=== PATIENT | male | born 1980 | race African-American/Black ===

== ENCOUNTER 2017-08-05 08:38 | Emergency (ER) | payer SELFPAY ==
[2017-08-05 10:08] VITALS: BP 122/87
--- NOTE | 2017-08-05 10:54 | UC ---
Complaint Male HPI - HPI Summary HPI Summary: Pt presents with c/o dysuria, hematuria and penile discharge X 2 days. Pt reports that he had unprotected intercourse with a former girlfriend. STD status unknown. - History of Current Complaint Chief Complaint: UCGU Stated Complaint: BLOOD IN URINE 2 DAYS Time Seen by Provider: 08/05/17 10:43 Hx Obtained From: Patient Onset/Duration: Sudden Onset, Lasting Days, Still Present Timing: Intermittent, Lasting Seconds Severity Initially: Mild Severity Currently: Mild Location: Penis Character: Sharp, Burning Aggravating Factor(s): Voiding Associated Signs And Symptoms: Positive: Hematuria, Dysuria - Allergies/Home Medications Allergies/Adverse Reactions: Allergies Allergy/AdvReac Type Severity Reaction Status Date / Time No Known Allergies Allergy Verified 08/05/17 09:54 Home Medications: Home Medications NK [No Home Medications Reported] 08/05/17 [History Confirmed 08/05/17] PMH/Surg Hx/FS Hx/Imm Hx Previously Healthy: Yes - Surgical History Surgical History: None - Family History Known Family History: Positive: Cardiac Disease - Social History Occupation: Employed Full-time - Pt is a haul truck driver Alcohol Use: None Substance Use Type: None Smoking Status (MU): Former Smoker Have You Smoked in the Last Year: No When Did the Patient Quit Smoking/Using Tobacco: 2005 Review of Systems Constitutional: Negative Skin: Negative Eyes: Negative ENT: Negative Respiratory: Negative Cardiovascular: Negative Gastrointestinal: Negative Genitourinary: Dysuria, Hematuria, Vaginal/Penile Burning Motor: Negative Neurovascular: Negative Musculoskeletal: Negative Neurological: Negative Psychological: Negative Is Patient Immunocompromised?: No All Other Systems Reviewed And Are Negative: Yes Physical Exam Triage Information Reviewed: Yes Appearance: Well-Appearing Vital Signs: Initial Vital Signs Temp 98.4 F 08/05/17 09:45 Pulse 83 08/05/17 09:45 Resp 20 08/05/17 09:45 BP 122/87 08/05/17 09:45 Vital Signs Reviewed: Yes Eye Exam: Normal ENT Exam: Normal Dental Exam: Normal Neck exam: Normal Respiratory Exam: Normal Cardiovascular Exam: Normal Abdominal Exam: Normal Abdomen Description: Positive: Nontender Musculoskeletal Exam: Normal Neurological Exam: Normal Psychological Exam: Normal Skin Exam: Normal Complaint Male Course/Dx - Differential Dx/Diagnosis Differential Diagnosis/HQI/PQRI: Urinary Tract Infection, Other - STD, urethritis Provider Diagnoses: Urethritis. STD exposure. hematuria Discharge - Discharge Plan Condition: Stable Disposition: HOME Patient Education Materials: Nonspecific Urethritis in Men (ED) Referrals: [facility] [Outside] No Primary Care Phys,NOPCP [Primary Care Provider] - If Needed Additional Instructions: Please follow up with your PCP or return to clinic as needed.
[2017-08-05] MEDS ORDERED: cefTRIAXone VIAL(*) 1,000 MG VIAL IM ONE (10:57)
[2017-08-05] MEDS ORDERED: Lidocaine 1% INJ* 10 MG/ML 30 ML SDV INJ ONE (10:58)
[2017-08-05] MEDS ORDERED: Azithromycin TAB* 250 MG PO ONE (10:59)
[2017-08-05] MEDS ORDERED: Lidocaine 1% MPF* 2 ML VIAL ONE (11:22)
[2017-08-05] MEDS ORDERED: cefTRIAXone VIAL(*) 250 MG VIAL IM ONE (11:22)
--- NOTE | 2017-08-07 08:23 | UC ---
Progress - Progress Note Progress Note: HIV negative. Urine culture negative. Still pending syphilis and hep c. Please let him know - Results/Orders Results/Orders: HIV negative. Urine culture no growth
[2017-08-07 08:43] LABS: Syphilis Index < 0.1 Index
== END 2017-08-05 11:40 | disposition home or self-care (01) ==
LOC: UCCORT 08:38
DX: N34.2 Other urethritis (principal); R31.9 Hematuria, unspecified; Z20.2 Contact with and (suspected) exposure to infections with a predominantly sexual mode of transmission; Z87.891 Personal history of nicotine dependence
CPT/HCPCS: 36415; 81003; 86592; 86703; 86803; 87086; 87491; 87591; 96372; 99212; A9270-GY; G0463; J0696; J2001

== ENCOUNTER 2017-09-09 12:52 | Emergency (ER) | payer SELFPAY ==
--- NOTE | 2017-09-09 13:12 | UC ---
Complaint Male HPI - HPI Summary HPI Summary: 37 year old male presents with complains of hematuria. - History of Current Complaint Chief Complaint: UCGU Stated Complaint: BLOOD IN URINE Time Seen by Provider: 09/09/17 13:12 Hx Obtained From: Patient Onset/Duration: Sudden Onset Timing: Constant Severity Initially: Moderate Severity Currently: Moderate - Allergies/Home Medications Allergies/Adverse Reactions: Allergies Allergy/AdvReac Type Severity Reaction Status Date / Time No Known Allergies Allergy Verified 09/09/17 13:09 PMH/Surg Hx/FS Hx/Imm Hx Previously Healthy: Yes - Surgical History Surgical History: None - Family History Known Family History: Positive: None, Cardiac Disease - Social History Alcohol Use: Occasionally Substance Use Type: None Smoking Status (MU): Never Smoked Tobacco Have You Smoked in the Last Year: No When Did the Patient Quit Smoking/Using Tobacco: 2005 Review of Systems Constitutional: Negative Skin: Negative Eyes: Negative ENT: Negative, Sore Throat Respiratory: Negative Cardiovascular: Negative Gastrointestinal: Negative Genitourinary: Hematuria Motor: Negative Neurovascular: Negative Musculoskeletal: Negative Neurological: Negative Psychological: Negative All Other Systems Reviewed And Are Negative: Yes Physical Exam Triage Information Reviewed: Yes Vital Signs Reviewed: Yes Eye Exam: Normal ENT Exam: Normal Dental Exam: Normal Neck exam: Normal Neck: Positive: 1 Respiratory Exam: Normal Cardiovascular Exam: Normal Abdominal Exam: Normal Musculoskeletal Exam: Normal Neurological Exam: Normal Psychological Exam: Normal Skin Exam: Normal Complaint Male Course/Dx - Differential Dx/Diagnosis Provider Diagnoses: uti. hematuria Discharge - Discharge Plan Condition: Stable Disposition: HOME Prescriptions: Ciprofloxacin TAB* [Cipro 500 MG TAB*] 500 mg PO BID #20 tab Patient Education Materials: Urinary Tract Infection in Men (ED) Referrals: No Primary Care Phys,NOPCP [Primary Care Provider] - Kevin Mehta MD [Medical Doctor] -
[2017-09-09 13:21] VITALS: BP 121/76
--- NOTE | 2017-09-12 07:14 | ED ---
Progress - Progress Note Progress Note: ucx (-). can stop abx. Course/Dx - Diagnoses Provider Diagnoses: UTI (urinary tract infection)
== END 2017-09-09 13:46 | disposition home or self-care (01) ==
LOC: UCCORT 12:52
DX: N39.0 Urinary tract infection, site not specified (principal); R31.9 Hematuria, unspecified
CPT/HCPCS: 81003; 87086; 99212; G0463

== ENCOUNTER → 2018-11-30 15:52 | Emergency (ER) | payer OTHER ==
[~2018-11-30 15:52] MED LIST: Al Hydrox/Mg Hydrox/Simet LIQ* 30 ML UDC PO ONE
[2018-11-30 16:06] VITALS: BP 114/97
== END | disposition left against medical advice (07) ==
LOC: ED 15:52
DX: R10.9 Unspecified abdominal pain (principal); Z53.21 Procedure and treatment not carried out due to patient leaving prior to being seen by health care provider
CPT/HCPCS: 93005